=== PATIENT | female | born 1970 | race Caucasian/White ===

== ENCOUNTER 2018-08-22 18:11 | Emergency (ER) | payer OTHER, MEDICAID ==
[~2018-08-22] VITALS: Ht 172.7 cm; Wt 99.8 kg
[2018-08-22 19:30] LABS: BASO % 1 % (0-3); EOS # 0.1 x10^3/uL (0.0-0.7); EOS % 2 % (0-3); HEMOGLOBIN 13.6 g/dL (12.0-15.5); LYMPH # 1.6 x10^3/uL (1.0-4.8); LYMPH % 25 % (24-48); MEAN CORPUSCULAR HEMOGLOBIN 28 pg (25-35); MEAN CORPUSCULAR HGB CONC 33 g/dL (31-37); MEAN CORPUSCULAR VOLUME 83 fL (79-100); MONO # 0.4 x10^3/uL (0.0-1.1); MONO % 7 % (0-9); NEUT # 4.1 x10^3uL (1.8-7.7); NEUT % 65 % (31-73); PLATELET COUNT 320 x10^3/uL (140-400); RED BLOOD COUNT 4.93 x10^6/uL (3.50-5.40); RED CELL DISTRIBUTION WIDTH 14.5 % (11.5-14.5); WHITE BLOOD COUNT 6.3 x10^3/uL (4.0-11.0)
[2018-08-22 19:40] LABS: CALCIUM 8.8 mg/dL (8.5-10.1); CREATININE 0.8 mg/dL (0.6-1.0); GFR 76.2; POTASSIUM 3.2 mmol/L (3.5-5.1)
[2018-08-22] MEDS ORDERED: ISOSORBIDE MONONITRATE ER 30 MG TAB.ER.24H PO ONE (19:45)
[2018-08-22] MEDS ORDERED: ACETAMINOPHEN 500 MG TABLET PO ONE (20:00)
[2018-08-22] MEDS ORDERED: KETOROLAC 30 MG/ML VIAL. ONE (20:01)
[2018-08-22 20:15] VITALS: BP 149/95
[2018-08-22] MEDS ORDERED: KETOROLAC 30 MG/ML VIAL. IV ONE (20:15)
[2018-08-22] MEDS ORDERED: ISOS30TA4 PO (20:20)
--- NOTE | 2018-08-22 20:23 | PHYS DOC ---
Adult General Chief Complaint Chief Complaint High blood pressure HPI HPI 48 years old female presented to the emergency department with elevated blood pressure stated that she usually takes premedication amlodipine, metoprolol, Aldactone, and lately it's been no elevated she called her primary care provider who advised her to come to the emergency department for check up. Denies any chest pain or shortness breath no abdominal pain no nausea no vomiting she's complaining of neck pain that radiates to her right arm associated with numbness for the past 6 weeks Review of Systems Review of Systems Constitutional: Denies fever or chills [] Eyes: Denies change in visual acuity, redness, or eye pain [] HENT: Denies nasal congestion or sore throat [] Respiratory: Denies cough or shortness of breath [] Cardiovascular: No additional information not addressed in HPI [] GI: Denies abdominal pain, nausea, vomiting, bloody stools or diarrhea [] : Denies dysuria or hematuria [] Musculoskeletal: Denies back pain or joint pain [] Integument: Denies rash or skin lesions [] Neurologic: Denies headache, focal weakness or sensory changes [] Endocrine: Denies polyuria or polydipsia [] All other systems were reviewed and found to be within normal limits, except as documented in this note. Current Medications Current Medications Current Medications Medications (Trade) Dose Ordered Sig/Zari Start Time Stop Time Status Last Admin Dose Admin Acetaminophen (Tylenol) 1,000 mg 1X ONCE 08/22/18 20:00 08/22/18 20:01 DC Isosorbide Mononitrate (Imdur) 30 mg 1X ONCE 08/22/18 19:45 08/22/18 19:46 DC 08/22/18 19:41 30 MG Ketorolac Tromethamine (Toradol 30mg Vial) 30 mg 1X ONCE 08/22/18 20:15 08/22/18 20:16 DC 08/22/18 20:06 30 MG Allergies Allergies Allergies Coded Allergies Type Severity Reaction Last Updated Verified Influenza Virus Vaccines Allergy Severe Anaphylaxis 08/22/18 Yes amoxicillin Allergy Severe 08/22/18 Yes clavulanic acid Allergy Severe 08/22/18 Yes clonidine Allergy Severe 08/22/18 Yes codeine Allergy Severe throat swelling 08/22/18 Yes diphenhydramine Allergy Severe 08/22/18 Yes fentanyl Allergy Severe 08/22/18 Yes gabapentin Allergy Severe 08/22/18 Yes hydralazine Allergy Severe 08/22/18 Yes hydrocodone Allergy Severe throat swelling 08/22/18 Yes lisinopril Allergy Severe cough, angioedema 08/22/18 Yes oxytocin Allergy Severe Anaphylaxis 08/22/18 Yes sulfamethoxazole Allergy Severe 08/22/18 Yes topiramate Allergy Severe 08/22/18 Yes enoxaparin Allergy Intermediate hives on abdomen 08/22/18 Yes lorazepam Allergy Intermediate hallucinations 08/22/18 Yes adhesive tape Allergy Mild IRRITATES SKIN 08/22/18 Yes Physical Exam Physical Exam Constitutional: Well developed, well nourished, no acute distress, non-toxic appearance. [] HENT: Normocephalic, atraumatic, bilateral external ears normal, oropharynx moist, no oral exudates, nose normal. [] Eyes: PERRLA, EOMI, conjunctiva normal, no discharge. [] Neck: Normal range of motion, no tenderness, supple, no stridor. [] Cardiovascular:Heart rate regular rhythm, no murmur [] Lungs & Thorax: Bilateral breath sounds clear to auscultation [] Abdomen: Bowel sounds normal, soft, no tenderness, no masses, no pulsatile masses. [] Skin: Warm, dry, no erythema, no rash. [] Back: No tenderness, no CVA tenderness. [] Extremities: No tenderness, no cyanosis, no clubbing, ROM intact, no edema. [] Neurologic: Alert and oriented X 3, normal motor function, normal sensory function, no focal deficits noted. [] Psychologic: Affect normal, judgement normal, mood normal. [] Current Patient Data Vital Signs Vital Signs Date Time Temp Pulse Resp B/P (MAP) Pulse Ox O2 Delivery O2 Flow Rate FiO2 08/22/18 19:41 100 154/94 08/22/18 18:20 97.7 22 99 Room Air Lab Results Laboratory Tests Test 08/22/18 18:55 White Blood Count 6.3 x10^3/uL (4.0-11.0) Red Blood Count 4.93 x10^6/uL (3.50-5.40) Hemoglobin 13.6 g/dL (12.0-15.5) Hematocrit 41.0 % (36.0-47.0) Mean Corpuscular Volume 83 fL (79-100) Mean Corpuscular Hemoglobin 28 pg (25-35) Mean Corpuscular Hemoglobin Concent 33 g/dL (31-37) Red Cell Distribution Width 14.5 % (11.5-14.5) Platelet Count 320 x10^3/uL (140-400) Neutrophils (%) (Auto) 65 % (31-73) Lymphocytes (%) (Auto) 25 % (24-48) Monocytes (%) (Auto) 7 % (0-9) Eosinophils (%) (Auto) 2 % (0-3) Basophils (%) (Auto) 1 % (0-3) Neutrophils # (Auto) 4.1 x10^3uL (1.8-7.7) Lymphocytes # (Auto) 1.6 x10^3/uL (1.0-4.8) Monocytes # (Auto) 0.4 x10^3/uL (0.0-1.1) Eosinophils # (Auto) 0.1 x10^3/uL (0.0-0.7) Basophils # (Auto) 0.0 x10^3/uL (0.0-0.2) Sodium Level 143 mmol/L (136-145) Potassium Level 3.2 mmol/L (3.5-5.1) L Chloride Level 106 mmol/L (98-107) Carbon Dioxide Level 29 mmol/L (21-32) Anion Gap 8 (6-14) Blood Urea Nitrogen 11 mg/dL (7-20) Creatinine 0.8 mg/dL (0.6-1.0) Estimated GFR (Cockcroft-Gault) 76.2 Glucose Level 95 mg/dL (70-99) Calcium Level 8.8 mg/dL (8.5-10.1) Troponin I Quantitative < 0.017 ng/mL (0-0.055) EKG EKG [] Radiology/Procedures Radiology/Procedures [] Course & Med Decision Making Course & Med Decision Making Pertinent Labs and Imaging studies reviewed. (See chart for details) [] Final Impression Final Impression [] Problems: (1) Hypertension Qualifiers: Qualified Codes: I10 - Essential (primary) hypertension Dragon Disclaimer Dragon Disclaimer This electronic medical record was generated, in whole or in part, using a voice recognition dictation system. ALEXANDRA LUZ MD Aug 22, 2018 20:23
[2018-08-22] MEDS ORDERED: POTASSIUM CHLORIDE 20 MEQ TABLET.ER. PO ONE (20:30)
--- NOTE | 2018-08-23 00:43 | EKG ---
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
== END 2018-08-22 20:38 | disposition home or self-care (01) ==
LOC: ER 18:11
DX: I10 Essential (primary) hypertension (principal); M54.2 Cervicalgia; Z88.1 Allergy status to other antibiotic agents; Z88.5 Allergy status to narcotic agent; Z88.7 Allergy status to serum and vaccine; Z88.8 Allergy status to other drugs, medicaments and biological substances
CPT/HCPCS: 36415; 80048; 84484; 85025; 93005; 96374; 99284; J1885

== ENCOUNTER → 2019-12-04 | Outpatient (CLI) | payer MEDICARE, MEDICAID ==
[~2019-12-04] MED LIST: ALLO100T PO; CETI10TA24 PO; CHLO25TA9 PO; FLUT1AER IH; IPRA3AMP29 NEB; ISOS30TA4 PO; LEVO175T2 PO; MV-M1TAB7 PO; NEBI2.5T2 PO; NORT10CA PO; ONAB100V IJ; PANT40TA3 PO; ROPI2TAB PO
== END | disposition home or self-care (01) ==
LOC: LAB 15:06
PROVIDERS: ATTEND Registered Nurse
DX: Z11.59 Encounter for screening for other viral diseases (principal)
CPT/HCPCS: C9803; U0003

== ENCOUNTER → 2019-12-21 | Outpatient (CLI) | payer MEDICARE, MEDICAID ==
[~2019-12-21] MED LIST changes: -CETI10TA24 PO; +CETI10TA74 PO
== END | disposition home or self-care (01) ==
LOC: LAB 11:30
PROVIDERS: ATTEND Registered Nurse
DX: Z11.59 Encounter for screening for other viral diseases (principal)
CPT/HCPCS: C9803; U0003; 87426

== ENCOUNTER → 2019-12-24 | Day surgery (SDC) | payer MEDICARE, MEDICAID ==
[~2019-12-24] MED LIST changes: +CETI10TA24 PO; -CETI10TA74 PO; +IV RINGERS SOLUTION,LACTATED 1,000 ML IV SCH; +ONDANSETRON PF 4 MG/2 ML VIAL. IV PRN; +PROPOFOL 10,000 MCG/ML (20ML) VIAL IV ONE
[2019-12-24 09:20] VITALS: BP 112/65
== END | disposition home or self-care (01) ==
LOC: SURG 07:29
PROVIDERS: ATTEND Internal Medicine Gastroenterology
DX: R10.32 Left lower quadrant pain (principal); K62.5 Hemorrhage of anus and rectum; K64.8 Other hemorrhoids; G47.33 Obstructive sleep apnea (adult) (pediatric); J45.909 Unspecified asthma, uncomplicated; K21.9 Gastro-esophageal reflux disease without esophagitis; E03.9 Hypothyroidism, unspecified; I10 Essential (primary) hypertension; E66.9 Obesity, unspecified; Z86.73 Personal history of transient ischemic attack (TIA), and cerebral infarction without residual deficits; Z90.710 Acquired absence of both cervix and uterus; Z90.49 Acquired absence of other specified parts of digestive tract; Z98.890 Other specified postprocedural states; Z79.899 Other long term (current) drug therapy; Z87.442 Personal history of urinary calculi; Z68.34 Body mass index [BMI] 34.0-34.9, adult; Z88.8 Allergy status to other drugs, medicaments and biological substances; Z88.1 Allergy status to other antibiotic agents; Z88.6 Allergy status to analgesic agent
CPT/HCPCS: 45378; J2704; J7120

== ENCOUNTER → 2020-09-14 | Outpatient (CLI) | payer MEDICARE, MEDICAID ==
[2019-12-24 09:20] VITALS: BP 112/65
[~2020-09-14] MED LIST changes: -CETI10TA24 PO; +CETI10TA74 PO; -ISOS30TA4 PO; +ISOS30TA68 PO; -IV RINGERS SOLUTION,LACTATED 1,000 ML IV SCH; -ONDANSETRON PF 4 MG/2 ML VIAL. IV PRN; -PROPOFOL 10,000 MCG/ML (20ML) VIAL IV ONE
--- NOTE | 2020-09-14 13:33 | RAD ---
EXAM: Nuclear gastric emptying scan. HISTORY: Pain. COMPARISON: None. TECHNIQUE: Serial static images were obtained over the stomach following oral administration of 2 mCi 99m-Tc sulfur colloid. FINDINGS: The stomach empties into the small bowel without evidence of reflux in the area of the esop hagus. Gastric retention percents: 1 hour 69% (normal range 34.8-91%) 2 hour 44% (normal range 2.7-60%) 3 hour 24% (normal range 0.5-28%) 4 hour 9% (normal range 0-10%) The estimated time for half emptying of gastric contents, i.e. 'gastric emptying time' is 110 minutes (normal is 66 +/- 22 minutes). IMPRESSION: Delayed gastric emptying half-time. The gastric emptying at 1 hour, 2 hours, 3 hours and 4 hours remains within normal limits. There is no convincing gastroparesis. Electronically signed by: Bhumika Pappas MD (09/14/2020 1:30 PM) [id number]
== END ==
LOC: NM 08:51
PROVIDERS: ATTEND Internal Medicine Gastroenterology
DX: K30 Functional dyspepsia (principal)
CPT/HCPCS: 78264; A9541

== ENCOUNTER 2021-07-18 18:25 | Emergency (ER) | payer MEDICARE, MEDICAID ==
[~2021-07-18] VITALS: Ht 172.7 cm; Wt 104.0 kg
[2021-07-18 20:41] VITALS: BP 127/85
[2021-07-18] MEDS ORDERED: IV NORMAL SALINE 1,000ML 1,000 ML IV ONE (21:00)
--- NOTE | 2021-07-18 21:13 | RAD ---
AP chest. HISTORY: Short of air, Covid positive AP view was taken of the chest. There are hazy bilateral diffuse infiltrates consistent with Covid pn eumonia. Heart is normal in size. There is no pleural effusion. IMPRESSION: 1. Bilateral diffuse infiltrates. Electronically signed by: Larry Burk MD (07/18/2021 9:10 PM) [facility]
[2021-07-18] MEDS ORDERED: IBUPROFEN 600 MG TABLET. PO ONE (21:15)
[2021-07-18] MEDS ORDERED: ACETAMINOPHEN 500 MG TABLET PO ONE (21:15)
--- NOTE | 2021-07-18 21:17 | PHYS DOC ---
Past History Past Medical History: Asthma, GERD, Hypertension, Hypothyroid, Migraines (LAWRENCE DE LA CRUZ APRN) Past Surgical History: Cholecystectomy, Hysterectomy (LAWRENCE DE LA CRUZ APRN) Alcohol Use: None Drug Use: None (LAWRENCE DE LA CURZ APRN) General Adult EDM: Chief Complaint: SHORTNESS OF BREATH HPI: HPI: Patient is a 50-year-old female who presents to the emergency department for multiple complaints. Patient tested positive for COVID-19 1 week ago she was seen at her primary care provider's office who discharged her home with prednisone. She reports that she was feeling better but ran out of the prednisone yesterday and her symptoms worsened. Patient is reporting shortness of breath, nonproductive cough, fevers, diarrhea and midsternal chest pain that feels like a pressure that started this morning. The chest pain radiates to her back. No alleviating factors. Worse with cough and deep inspiration. Patient's been taking Tylenol and ibuprofen for her symptoms at home. She denies any nausea, vomiting, abdominal pain. Her vital signs are stable. (LAWRENCE DE LA CRUZ APRN) Review of Systems: Review of Systems: Constitutional: negative unless reported in HPI Eyes: negative unless reported in HPI HENT: negative unless reported in HPI Respiratory: negative unless reported in HPI Cardiovascular: negative unless reported in HPI GI: negative unless reported in HPI : negative unless reported in HPI Musculoskeletal: negative unless reported in HPI Integument: negative unless reported in HPI Neurologic: negative unless reported in HPI Endocrine: negative unless reported in HPI Lymphatic: negative unless reported in HPI Psychiatric: negative unless reported in HPI (LAWRENCE DE LA CRUZ APRN) Current Medications: Current Meds: Current Medications Medications (Trade) Dose Ordered Sig/Zari Start Time Stop Time Status Last Admin Dose Admin Sodium Chloride 1,000 ml @ 1,000 mls/hr 1X ONCE 07/18/21 21:00 07/18/21 21:59 (LAWRENCE DE LA CRUZ APRN) Allergies: Allergies: Allergies Coded Allergies Type Severity Reaction Last Updated Verified Influenza Virus Vaccines Allergy Severe Anaphylaxis 07/18/21 Yes amoxicillin Allergy Severe 07/18/21 Yes clavulanic acid Allergy Severe 07/18/21 Yes clonidine Allergy Severe 07/18/21 Yes codeine Allergy Severe throat swelling 07/18/21 Yes diphenhydramine Allergy Severe 07/18/21 Yes erenumab-aooe Allergy Severe 07/18/21 Yes fentanyl Allergy Severe 07/18/21 Yes gabapentin Allergy Severe 07/18/21 Yes hydralazine Allergy Severe 07/18/21 Yes hydrocodone Allergy Severe throat swelling 07/18/21 Yes hyoscyamine Allergy Severe 07/18/21 Yes lisinopril Allergy Severe cough, angioedema 07/18/21 Yes oxycodone Allergy Severe Anaphylaxis 07/18/21 Yes oxytocin Allergy Severe Anaphylaxis 07/18/21 Yes sulfamethoxazole Allergy Severe 07/18/21 Yes topiramate Allergy Severe 07/18/21 Yes enoxaparin Allergy Intermediate hives on abdomen 07/18/21 Yes lorazepam Allergy Intermediate hallucinations 07/18/21 Yes verapamil Allergy Intermediate 07/18/21 Yes zolpidem Allergy Intermediate hallucinations 07/18/21 Yes adhesive tape Allergy Mild IRRITATES SKIN 07/18/21 Yes (LAWRENCE DE LA CRUZ APRN) Physical Exam: PE: Constitutional: Well developed, well nourished, no acute distress, non-toxic appearance. [] HENT: Normocephalic, atraumatic, bilateral external ears normal, oropharynx moist, no oral exudates, nose normal. [] Eyes: PERRL, EOMI, conjunctiva normal, no discharge. [] Neck: Normal range of motion, no tenderness, supple, no stridor. [] Cardiovascular:Heart rate regular rhythm, no murmur, chest pain reproducible with palpation and cough [] Lungs & Thorax: Bilateral breath sounds clear to auscultation [] Abdomen: Bowel sounds normal, soft, no tenderness, no masses, no pulsatile masses. [] Skin: Warm, dry, no erythema, no rash. [] Back: Normal range of motion Extremities: No tenderness, no cyanosis, no clubbing, ROM intact, no edema. [] Neurologic: Alert and oriented X 3, normal motor function, normal sensory function, no focal deficits noted. [] Psychologic: Affect normal, judgement normal, mood normal. [] (LAWRENCE DE LA CRUZ APRN) Current Patient Data: Labs: Laboratory Tests Test 07/18/21 21:22 White Blood Count 5.5 x10^3/uL Red Blood Count 4.83 x10^6/uL Hemoglobin 13.1 g/dL Hematocrit 40.1 % Mean Corpuscular Volume 83 fL Mean Corpuscular Hemoglobin 27 pg Mean Corpuscular Hemoglobin Concent 33 g/dL Red Cell Distribution Width 15.4 % Platelet Count 170 x10^3/uL Neutrophils (%) (Auto) 72 % Lymphocytes (%) (Auto) 19 % Monocytes (%) (Auto) 9 % Eosinophils (%) (Auto) 0 % Basophils (%) (Auto) 0 % Neutrophils # (Auto) 3.9 x10^3uL Lymphocytes # (Auto) 1.0 x10^3/uL Monocytes # (Auto) 0.5 x10^3/uL Eosinophils # (Auto) 0.0 x10^3/uL Basophils # (Auto) 0.0 x10^3/uL Sodium Level 138 mmol/L Potassium Level 2.6 mmol/L Chloride Level 99 mmol/L Carbon Dioxide Level 30 mmol/L Anion Gap 9 Blood Urea Nitrogen 18 mg/dL Creatinine 1.1 mg/dL Estimated GFR (Cockcroft-Gault) 52.4 BUN/Creatinine Ratio 16 Glucose Level 97 mg/dL Lactic Acid Level 2.0 mmol/L Calcium Level 8.3 mg/dL Total Bilirubin 0.4 mg/dL Aspartate Amino Transf (AST/SGOT) 88 U/L Alanine Aminotransferase (ALT/SGPT) 79 U/L Alkaline Phosphatase 136 U/L Troponin I High Sensitivity 7 ng/L Total Protein 7.0 g/dL Albumin 3.1 g/dL Albumin/Globulin Ratio 0.8 Current Medications Medications (Trade) Dose Ordered Sig/Zari Route PRN Reason Start Time Stop Time Status Last Admin Dose Admin Sodium Chloride 1,000 ml @ 1,000 mls/hr 1X ONCE IV 07/18/21 21:00 07/18/21 21:59 DC 07/18/21 21:00 Acetaminophen (Tylenol) 1,000 mg 1X ONCE PO 07/18/21 21:15 07/18/21 21:16 DC 07/18/21 22:32 Ibuprofen (Motrin) 600 mg 1X ONCE PO 07/18/21 21:15 07/18/21 21:16 DC 07/18/21 22:32 Vital Signs: Vital Signs Date Time Temp Pulse Resp B/P (MAP) Pulse Ox O2 Delivery O2 Flow Rate FiO2 07/18/21 20:41 100.1 94 20 127/85 (99) 96 Room Air (LAWRENCE DE LA CRUZ APRN) EKG: EKG: EKG performed by ER staff at 2047 shows sinus rhythm with a rate of 84, prolonged QTC, no STEMI by Dr. Ugalde [] (LAWRENCE DE LA CRUZ APRN) Radiology/Procedures: Radiology/Procedures: []PROCEDURE: PORTABLE CHEST 1V AP chest. HISTORY: Short of air, Covid positive AP view was taken of the chest. There are hazy bilateral diffuse infiltrates con sistent with Covid pneumonia. Heart is normal in size. There is no pleural effusion. IMPRESSION: 1. Bilateral diffuse infiltrates. Electronically signed by: Larry Burk MD (07/18/2021 9:10 PM) [facility] DICTATED AND SIGNED BY: LARRY BURK MD DATE: 07/18/212109 CC: LAWRENCE DE LA CRUZ APRN; GARY ASWYER MD ~MTH0 0 (LAWRENCE DE LA CRUZ APRN) Heart Score: C/O Chest Pain: Yes HEART Score for Chest Pain: HEART Score for Chest Pain Response (Comments) Value History Slighlty/Non-Suspicious 0 ECG Nonspecific Repolarizatio 1 Age >45 - < 65 1 Risk Factors 1 or 2 Risk Factors 1 Troponin < Normal Limit 0 Total 3 Risk Factors: Risk Factors: DM, Current or recent (<one month) smoker, HTN, HLP, family history of CAD, obesity. Risk Scores: Score 0 - 3: 2.5% MACE over next 6 weeks - Discharge Home Score 4 - 6: 20.3% MACE over next 6 weeks - Admit for Clinical Observation Score 7 - 10: 72.7% MACE over next 6 weeks - Early Invasive Strategies (LAWRENCE DE LA CRUZ APRN) Course & Med Decision Making: Course & Med Decision Making Pertinent Labs and Imaging studies reviewed. (See chart for details) [] Patient presents to the emergency department after being diagnosed with COVID-19 1 week ago with complaints of shortness of breath, cough, fevers, diarrhea, midsternal chest pain. Work-up in the ER consisted of blood work, EKG, chest x-ray. Patient's vital signs are stable in the emergency department, she was febrile and this was treated with Tylenol, ibuprofen and IV fluids. Patient CBC is unremarkable. Patient's potassium was 2.6. Patient reports that she has a history of hypokalemia and her baseline potassium usually runs 2.6- 2.9. She states that she does not take potassium supplements at home until her primary care providers told her to restart them. Patient was noted to have mild lactic acidosis. Her troponin was within normal limits. Patient's heart score is 3. Patient not requiring any serial troponins as her chest pain started early this morning. I spoke to Dr. Cisneros regarding admitting patient for her hypokalemia in which he advised to discharge the patient home with potassium supplementation and have her follow-up with her primary care provider Dr. Sawyer within 10 days. Patient will be discharged home with azithromycin for her COVID-pneumonia. Patient's vital signs are stable, she is not tachycardic and not requiring any oxygen. Patient will also be discharged home with an albuterol inhaler. She is advised to purchase a pulse oximeter and monitor her oxygen saturations. I discussed with patient all findings and diagnostic testing as well as the need to follow-up with PCP for further evaluation and treatment or return to the ER if any new or worsening symptoms. Strict return precautions were also discussed at length. Patient voiced understanding and agreement with the plan. Patient is hemodynamically stable at the time of disposition. (LAWRENCE DE LA CRUZ APRN) Dragon Disclaimer: Dragon Disclaimer: This electronic medical record was generated, in whole or in part, using a voice recognition dictation system. (LAWRENCE DE LA CRUZ APRN) Departure Departure: Impression: Primary Impression: Pneumonia due to COVID-19 virus Disposition: HOME / SELF CARE / HOMELESS Condition: GOOD Referrals: GARY SAWYER MD (PCP) Patient Instructions: Pneumonia, Adult Additional Instructions: You were seen in the emergency department today for shortness of breath, cough, fevers, diarrhea and chest pain after COVID-19. Your chest x-ray does show pneumonia and this will be treated with an antibiotic. Please start finish the antibiotic completely. Please take Tylenol and ibuprofen for your pain or fevers. As we discussed, your potassium level was low please take the potassium supplement as directed and follow-up with your primary care provider within 10 days for a recheck. You are also being discharged home with an albuterol inhaler that you can use when you feel short of breath. Please use your pulse oximeter and monitor your oxygen saturation levels at home and return to the emergency department if your oxygen saturation drops below 90%. I would advise you to follow-up with your primary care provider soon as possible. If you develop decreased oxygen saturations, increased shortness of breath, chest pain, high fevers refractory to treatment, intractable nausea or vomiting, weakness or any new or worsening concerns please return to the ER. Scripts Albuterol Sulfate (PROAIR HFA INHALER) 8.5 Gm Hfa.aer.ad 2 PUFF IH PRN Q4-6HRS PRN for wheezing for 21 Days, #1 INHALER 0 Refills as needed for wheezing Prov: LAWRENCE DE LA CRUZ APRN 07/18/21 Potassium Chloride (POTASSIUM CHLORIDE ) 20 Meq Tablet.er 40 MEQ PO DAILY for SUPPLEMENT for 14 Days, #28 TAB 0 Refills Prov: LAWRENCE DE LA CRUZ APRN 07/18/21 Azithromycin (AZITHROMYCIN TABLET) 250 Mg Tablet 1 PKG PO UD for pneumonia for 5 Days, #6 TAB 0 Refills 2 the first day followed by 1 for days 2-5 Prov: LAWRENCE DE LA CRUZ APRN 07/18/21 Attending Signature Attending Signature I have participated in the care of this patient and I have reviewed and agree with all pertinent clinical information above including history, exam, and recommendations. (KELSI UGALDE MD) LAWRENCE DE LA CRUZ APRN Jul 18, 2021 21:17 KELSI UGALDE MD Jul 23, 2021 20:39
[2021-07-18 21:48] LABS: BASO % 0 % (0-3); EOS % 0 % (0-3); HEMATOCRIT 40.1 % (36.0-47.0); HEMOGLOBIN 13.1 g/dL (12.0-15.5); LYMPH % 19 % (24-48); MEAN CORPUSCULAR HEMOGLOBIN 27 pg (25-35); MEAN CORPUSCULAR HGB CONC 33 g/dL (31-37); MEAN CORPUSCULAR VOLUME 83 fL (79-100); MONO # 0.5 x10^3/uL (0.0-1.1); MONO % 9 % (0-9); NEUT # 3.9 x10^3uL (1.8-7.7); NEUT % 72 % (31-73); PLATELET COUNT 170 x10^3/uL (140-400); RED BLOOD COUNT 4.83 x10^6/uL (3.50-5.40); RED CELL DISTRIBUTION WIDTH 15.4 % (11.5-14.5); WHITE BLOOD COUNT 5.5 x10^3/uL (4.0-11.0)
[2021-07-18 22:06] LABS: ALBUMIN 3.1 g/dL (3.4-5.0); ALBUMIN/GLOBULIN RATIO 0.8 (1.0-1.7); CALCIUM 8.3 mg/dL (8.5-10.1); CREATININE 1.1 mg/dL (0.6-1.0); GFR 52.4; TOTAL BILIRUBIN 0.4 mg/dL (0.2-1.0)
[2021-07-18 22:51] LABS: POTASSIUM 2.6 mmol/L (3.5-5.1)
[2021-07-18] MEDS ORDERED: POTA20TA4 PO (23:17)
[2021-07-18] MEDS ORDERED: AZIT250T6 PO (23:17)
[2021-07-18] MEDS ORDERED: ALBU2.5V8 IH (23:40)
--- NOTE | 2021-07-19 01:04 | EKG ---
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
== END 2021-07-18 23:46 | disposition home or self-care (01) ==
LOC: ER 18:25
DX: U07.1 COVID-19 (principal); J12.82 Pneumonia due to coronavirus disease 2019; J45.909 Unspecified asthma, uncomplicated; K21.9 Gastro-esophageal reflux disease without esophagitis; I10 Essential (primary) hypertension; E03.9 Hypothyroidism, unspecified; G43.909 Migraine, unspecified, not intractable, without status migrainosus; Z88.7 Allergy status to serum and vaccine; Z88.1 Allergy status to other antibiotic agents; Z88.5 Allergy status to narcotic agent; Z88.2 Allergy status to sulfonamides; Z88.8 Allergy status to other drugs, medicaments and biological substances
CPT/HCPCS: 36415; 71045; 80053; 83605; 84484; 85025; 87040; 93005; 96360; 96361; 99285; J7030

== ENCOUNTER → 2021-11-27 | Outpatient (CLI) | payer MEDICARE, MEDICAID ==
[~2021-11-27] MED LIST changes: +ALBU2.5V8 IH; +AZIT250T6 PO; +POTA20TA4 PO
--- NOTE | 2021-11-27 09:20 | RAD ---
EXAMINATION: Renal kidney stone study. INDICATION: Hematuria with right-sided pain COMPARISONS: None TECHNIQUE: Axial 3 mm thick sections were obtained without oral or IV contrast. Sagittal and coronal reformats were obtained. FINDINGS: KIDNEYS AND RENAL COLLECTING SYSTEMS RIGHT KIDNEY AND URETER: Minimal slightly asymmetric perinephric stranding. There are a few punctate nonobstructing renal calc silverio. No ureteric calculi. No hydronephrosis. No focal renal lesions, within the limits of this noncon trast examination. LEFT KIDNEY AND URETER: There are a few punctate nonobstructing renal calculi. Subcentimeter hypoattenuating cortical focus w ithin the superior pole, too small to accurately characterize favoring a benign cyst. No Ureteric timbo culi. No hydronephrosis. No focal renal lesions, within the limits of this noncontrast examination. URINARY BLADDER: Unremarkable. OTHER: Visualized lung bases are clear. Heart size normal. No pericardial effusion. The evaluation of the solid organs is limited due to lack of IV contrast. The evaluation of bowel is limited due to lack of oral contrast. The liver is normal in size and attenuation. No focal hepatic lesions. Gallbladder is absent. No sign ificant biliary ductal dilation. The spleen is enlarged measuring 15 cm in maximal AP diameter. The a drenal glands are unremarkable. The pancreas is grossly unremarkable. Stomach is normal in appearance. No evidence of bowel obstruction. There is a moderate colorectal sto ol burden present. Scattered colonic diverticuli without evidence of diverticulitis. Appendix is not definitely visualized. No free intra-abdominal air or fluid. No pathologically enlarged abdominal or pelvic adenopathy. Vasculature appears normal in course and caliber with minimal scattered atheroscle rotic calcifications. Uterus is absent. Multiple calcifications most consistent with benign phleboliths within the pelvis. No significant free pelvic fluid. No suspicious adnexal masses. Small fat-containing umbilical hernia. No evidence of acute process in the subcutaneous or soft tissu es. Multilevel degenerative changes of the visualized thoracolumbar spine. No evidence of acute fracture or suspicious osseous abnormality. IMPRESSION: 1. Nonobstructing bilateral punctate nephrolithiasis. No imaging findings of obstructive uropathy. 2. Minimal nonspecific asymmetric perinephric stranding along the superior pole of the right kidney. Recommend correlation with urinalysis to exclude urinary tract infection and/or developing pyelonephr itis. 3. Colonic diverticulosis without diverticulitis. 4. Splenomegaly. PRQS compliance statement - One or more of the following individualized dose reduction techniques wer e utilized for this study: 1. Automated exposure control 2. Adjustment of the mA and/or kV according to patient size 3. Use of iterative reconstruction technique Electronically signed by: Gary Hardwick DO (11/27/2021 9:18 AM) [id number]
== END ==
LOC: PMG 07:55
PROVIDERS: ATTEND Nurse Practitioner Family
DX: N20.0 Calculus of kidney (principal); R31.9 Hematuria, unspecified; K57.30 Diverticulosis of large intestine without perforation or abscess without bleeding; R16.1 Splenomegaly, not elsewhere classified; K42.9 Umbilical hernia without obstruction or gangrene; M47.815 Spondylosis without myelopathy or radiculopathy, thoracolumbar region; Z90.49 Acquired absence of other specified parts of digestive tract
CPT/HCPCS: 74176